=== PATIENT | female | born 1960 | race American Indian/Alaskan Native ===

== ENCOUNTER 2018-03-21 10:01 | Day surgery (SDC) | payer MEDICAID ==
[2018-03-14 10:59] VITALS: BMI 40.4
[2018-03-21 11:08] VITALS: BP 127/87; PULSE 97; RESP 20; TEMP 97.8; O2SAT 97
== END 2018-03-21 12:15 | disposition home or self-care (01) ==
LOC: C.SDS 10:01
PROVIDERS: ATTEND Surgery Surgical Critical Care
DX: D24.1 Benign neoplasm of right breast (principal); Z53.09 Procedure and treatment not carried out because of other contraindication
CPT/HCPCS: 19301; P000X